=== PATIENT | male | born 1995 | race Caucasian/White ===

== ENCOUNTER 2024-07-03 20:47 | Emergency (ER) | payer SELFPAY ==
[~2024-07-03] VITALS: Ht 182.9 cm; Wt 65.0 kg
[2024-07-03 20:55] VITALS: O2SAT 100
[2024-07-03] MEDS: KETOROLAC 30MG/ML VIAL IM ONE (21:20)
[2024-07-03 22:00] VITALS: BP 110/76; PULSE 72; RESP 17; TEMP 36.50292; O2SAT 100
[2024-07-03] MEDS ORDERED: ACET-2708 MT (22:21)
[2024-07-03] MEDS ORDERED: NAPR-679 MT (22:21)
== END 2024-07-03 23:42 | disposition home or self-care (01) ==
LOC: ER 20:47
DX: S52.121A Displaced fracture of head of right radius, initial encounter for closed fracture (principal); M25.561 Pain in right knee; W05.1XXA Fall from non-moving nonmotorized scooter, initial encounter; Y93.89 Activity, other specified; Y92.89 Other specified places as the place of occurrence of the external cause; Y99.8 Other external cause status
CPT/HCPCS: 99284; 29105; 73070; 73090; 73100; 96372; J1885; A4565